=== PATIENT | female | born 1990 ===

== ENCOUNTER 2025-02-07 12:00 | Outpatient (AMB) | payer OTHER, SELFPAY ==
--- NOTE | 2025-02-07 12:09 | MHC.OFFWIV ---
Intake Vital Signs 02/07/25 12:11 Height 5 ft 3 in BP 90/58 L Blood Pressure Location Lt brachial Position Sitting Pulse 94 Pulse Source Pulse Oximeter Temp 97.9 F Pulse Oximetry (%) 99 Oxygen Delivery Method Room Air Intake Visit Reasons: COMPOUND MIXER-sore throat, body ache, headaches Intake Note: [place] Islander speaking pt presents with sore throat, no pain with swallowing, body aches for 2 days Center Machine Set Up Operator Required: Yes Allergies Penicillins Allergy (Mild, Verified 02/07/25 12:17) Rash HPI HPI Comments History of Present Illness Details Patient is a 34yo F who presents with cold symptoms [place] Islander speaking and video occupational ther used for entire visit She said missed work and needs a note for yesterday and today Symptoms are; + body aches, headache and ST She said subjective fever/chills at 5am today She has tried tylenol without complete relief Pain level in throat 0/10 but irritated when swallowing and body aches is an 8/10 + fatigue + nausea without vomiting, diarrhea, constipation decreased appetite No cough No eat pain Review of Systems Const Reports fatigue, Denies fever(s) and Reports poor appetite Eyes Denies change in vision ENT Denies otalgia, Denies nasal congestion and Reports sore throat Card Denies chest pain and Denies syncope Resp Denies cough GI Denies abdominal pain and Denies vomiting Musc Reports myalgias Neuro Denies syncope Endo Reports fatigue Physical Exam Vital Signs: Last Vital Signs Temp 97.9 F 02/07/25 12:11 Pulse 94 02/07/25 12:11 BP 90/58 L 02/07/25 12:11 Pulse Ox 99 02/07/25 12:11 Oxygen Delivery Method Room Air 02/07/25 12:11 General: Non-toxic, NAD. Speaking full sentences. Skin: Warm dry throughout Eye: EOMI HENT: Airway patent. Uvula midline. Minimal pharyngeal erythema without exudates or edema. 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 Bilateral canals clear. TM non-erythematous, non-bulging. No TM perforation or hemotympanum noted. Respiratory: CTA bilaterally. No wheezes, rales or rhonchi Cardiac: RRR. No murmur MSK: Full ROM extremities. Neurology: Alert. No aphasia or facial droop. Gait without abnormality Psych: Good mood and affect Assessment & Plan Assessment & Plan (1) Viral illness: Code(s): B34.9 - Viral infection, unspecified Plan: Patient seen and evaluated. STrep negative covid/flu/rsv ordered and obtained Tylenol/Motrin fluids/rest PCP follow up Work note given Patient gave verbal understanding and had no additional questions or concerns at time of discharge All questions answered Orders: Orders SARS-CoV2/FLU/RSV Today B34.9 - Viral infection, unspecified Coding Level of Care Code New Pt Level 3 (35423) Diagnoses Viral illness B34.9
[2025-02-07 12:11] VITALS: BP 90/58; PULSE 94; TEMP 36.6; O2SAT 99
--- OUTSIDE RECORDS SUMMARY | 2025-02-07 13:04 | XMS_ITS | Data Portability ---
Author Organization [place] - [facility], Allergy Address [address] [address] Care Team Providers Care Mortgage Consultant Name Role Phone PHILLIP GOMEZ Primary Care Provider Assessment Encounter Date Assessment Date Assessment LastModified by Organization Details LastModified Time 04/12/2024 04/12/2024 Patient presents with bilateral cerumen impactions requiring operative microscope for removal. We discussed the need to avoid Q-tips and use 3 drops distilled vinegar twice weekly. She still notes some right-sided tinnitus. Will arrange for audiometric testing and follow-up colton Not available 04/12/2024 10:43:39 04/27/2024 04/27/2024 Patient presents for evaluation of ears and hearing. Otologic exam unremarkable. Audiometric testing demonstrates bilateral neurosensory hearing loss in the high frequencies. There is 10 to 15 dB of asymmetry at 4000, 6000, and 8000 Hz. We reviewed the differential to include acoustic neuroma versus other retrocochlear pathology. Discussed she does not meet criteria for MRI but would recommend 6 month recheck with audiogram. She was cautioned to call the office sooner with any perceived change. She is agreeable to the plan. Not available 04/27/2024 12:04:03 10/27/2024 10/27/2024 Patient with unilateral tinnitus and unilateral hearing loss, both on the right. Hearing remains stable as compared to April 2024. We discussed the utility of MRI of the internal auditory canal. Patient would like to pursue this and it has been ordered. She will be called with results. She will follow-up for annual testing. She understands the importance of calling the office in the interim with any perceived changes that arise. Not available 10/27/2024 12:59:14 Plan of Treatment Reminders Order Date Submit Date Provider Last Modified By Organization Details Last Modified Time Details Appointments None recorded. Lab None recorded. Referral None recorded. Procedures None recorded. Surgeries None recorded. Imaging MRI, brain + internal auditory canal, w/wo contrast 2024 025 [facility] [address] [place], [address], 14:14:05 Medication Orders None recorded. Patient TargetsNo targets recorded. Patient InstructionsNo instructions recorded. Reason for Referral None Reported. Results Created Date Observation Date Name Description Value Unit Range Abnormal Flag Note LastModifiedBy Organization Detail LastModifiedTime 05/01/20 24 audio gram No observ ation record ed. [email or web address] Not Available 2023 09:08:02 10/31/19 25 audio gram No observ ation record ed. BARCODE Not Available 2024 10:19:16 12/01/19 25 11/28/2024 MRI, brain + inter nal audit ory canal , w/wo contr ast No observ ation record ed. [email or web address] [facility] ([facility]) [address] [place], [address], 12/14/2024 09:44:21 Result Notes None recorded. Problems Name Problem SNOMED Code Status Onset Date Resolution Date Notes Provider Name and Address Organization Details Recorded Time Impacted cerumen of bilateral ears 0472672929854 108 Active 2023 ROYA DIAL MD [address] [address], [facility] [place], [address], [facility] - [facility] [place] 4 10:43:06 Tinnitus of right ear 7924431150289 Active 2023 ROYA DIAL MD [address] [address], [facility] [place], [address], [facility] - [facility] [place] 4 10:43:13 Sensorineur al hearing loss 47893598 Active 2023 Tracy layton [place] - [facility] [place] 4 10:58:07 Bilateral tinnitus 3387878685567 Active 2023 LEENA MURRAY PA-C [address] [facility],[address] [address], [place], [address], [facility] - [facility] [place] 11:19:27 Problem Notes None recorded. Procedures Surgical History Date Name Laterality Status Provider Name and Address Organization Details Recorded Time 10/28/19 25 Air & Speech Audio with Tymps - 26080, 04989 & 18529 completed ALESSIA POTTS [address] [facility],[address] [address], [place], [address], [facility] - [facility] [place] 10/27/2024 11:23:43 04/27/20 24 Tympanometry - 74566 completed Tracy Luong [place] - [facility] [place] 04/27/2024 10:58:00 04/27/20 24 Air & Bone Audio - 35830 completed Tracy Luong [place] - [facility] [place] 04/27/2024 10:57:55 04/12/20 24 Cerumen removal with microscope completed ROYA CHANDLER MD [address] [facility],[address] [address], [place], [address], [facility] 04/12/2024 10:44:18 Imaging Results None recorded. Procedure Notes None recorded. Medical Equipment None Reported. Allergies Allergen ID Allergen Name Allergen Category Reaction Reaction Severity Criticality Documentation Date Start Date Code Code System Note Provider Name and Address Organization Details Recorded Time 161974 Product containin g penicilli n (product) medicatio n Not available Not available Not available 04/12/2024 83321 8001 SNOMED Caleb Nixon KATIUSKA layton - [facility] [place] 4 10:06:00 957780 pineapple extract food Not available Not available Not available 04/12/2024 38954 74 RxNorm ROYA DIAL MD [address] [facility] [address], [place], [address], [facility] - [facility] [place] 10:42:12 Medications Name Sig Start Date Stop Date Status Note LastModified by Organization Details LastModified Time cyclobenzapr ine 10 mg tablet active Not Available Not Available Not Available fluconazole 150 mg tablet TAKE ONE TABLET BY MOUTH ONCE active Not Available Not Available N ot Available IBU 600 mg tablet TAKE ONE TABLET BY MOUTH EVERY 6 HOURS FOR MODERATE TO SEVERE PAIN SCALE 4-6. MAX OF 2400MG/DAY active Not Available Not Available N ot Available docusate sodium 100 mg capsule TAKE ONE CAPSULE BY MOUTH TWICE A DAY active Not Available Not Available No t Available diclofenac sodium 50 mg tablet,delay ed release active Not Available Not Available N ot Available norethindron e acetate 5 mg tablet TAKE ONE TABLET BY MOUTH EVERY DAY active Not Available Not Available No t Available oxycodone 5 mg tablet TAKE ONE TABLET BY MOUTH EVERY 4 HOURS NEEDED FOR SEVERE PAIN SCALE 7-10 active Not Available Not Available N ot Available Rozerem 8 mg tablet TAKE ONE TABLET BY MOUTH EVERY DAY AT BEDTIME active Not Available Not Available No t Available chlorhexidin e gluconate 0.12 % mouthwash USE 1 CAPFULL 15 ML) AFTER MEALS TWO TIMES A DAY ; DO NOT RINSE WITH WATER IMMEDIATELY AFTER USE active Not Available Not Available No t Available Vitals Date Recorded Body height Body mass index (BMI) Body weight Provider Name and Address Organization Details Last Updated DateTime 04/12/2024 157.48 cm 17.2 kg/m2 11510.68 g Caleb Nixon [facility] 04/12/2024 10:09:31 Date Recorded Body height Body mass index (BMI) Body weight Provider Name and Address Organization Details Last Updated DateTime 04/27/2024 157.48 cm 17.2 kg/m2 49945.68 g Tiffanie Cox [facility] 04/27/2024 10:29:19 Social History None recorded. Functional Status None recorded. Mental Status None recorded. Family History Nothing Reported. Medical History No medical history recorded. Gynecological HistoryNo gynecological history recorded. Obstetrics History GPAL:G 0 P 0 0 0 0 Past Encounters Encounter ID Performer Location Encounter Start Date Encounter Closed Date Diagnosis/Indication Diagnosis SNOMED-CT Code Diagnosis ICD10 Code Diagnosis Note [id number] ROYA GARCIA MD [facility] [address] [address] 04/12/2024 09:50:22 04/12/2024 10:43:40 Impacted cerumen of bilateral ears 3397652462 435843 H61.23 Tinnitus of right ear 48 40918979 108 H93.11 [id number] LEENA MURRAY PA-C [facility] [address] [address] 04/27/2024 10:22:30 04/27/2024 11:25:35 Sensorineural hearing loss 41595712 H90.5 Audiologic al evaluation results: Right ear: Normal sloping to a moderate sensorineu ral hearing loss with no measurable word recognitio n. Left ear: Normal sloping to a mild sensorineu ral hearing loss with no measurable word recognitio n.SRT and WRS could not be measured due to language barriers.A symmetric SNHL of 10dB or greater from 4-8kHz worst in the right. Tympanomet ry: Right Ear:Type A Left Ear:Type A Bilateral tinnitus 04827 28336 102 H93.13 [id number] LEENA MURRAY PA-C [facility] [address] [address] 10/27/2024 10:57:15 10/27/2024 11:52:34 Sensorineural hearing loss 45856325 H90.5 Audiologic al evaluation results: Right ear:Normal through 2 kHz sloping to moderately severe sensorineu ral hearing loss with excellent word recognitio n.Left ear:Normal through 4 kHz sloping to a mild sensorineu ral hearing loss with excellent word recognitio n. Tympanomet ry:Right Ear:Type ALeft Ear:Type A Tinnitus of right ear 48 08840810 108 H93.11 Health Concerns Section Related Observation LastModified by Organization Detai ls LastModified Time None Recorded Concern Status LastModified by Organization Details LastModified Time None Recorded Advance Directives Directive None Recorded Payers Insurance Date Sequence Insurance Name Policy Number Policy Aquino Covered Member ID Aquino Member ID Guarantor Name 10/27/2024 1 [facility] (MEDICAID REPLACEMENT - HMO) DIONNE Barnard [id number] Steph Barnard Notes Date Note Type Note Provider Name and Address Organization Details Recorded Time 04/12/2024 text/html Patient seen for bilateral ear blockage. PCP noted small ear canals. He notes right-sided tinnitus. Otherwise no chest pain shortness of breath bowel or bladder problems ROYA CHANDLER MD [address] [facility] [place], [place], [address], [facility] 04/12/2024 10:44:46 04/27/2024 text/html 33 year old gomez holman presents for evaluation of the ears and hearing. Previously found to have cerumen impaction which was debrided, and instructed to use vinegar. Patient reports the ears feel well. There is no otalgia and no otorrhea. Regarding her hearing, patient feels that her hearing is good. She has noticed that the right ear hears a whistling sound at times. She has a grandmother who had hearing loss rather early in life. TERESA CISNEROS MD [address] [facility],[address], [address], [facility] 04/27/2024 16:33:38 10/27/2024 text/html 33-year-old gomez holman presents for 6-month follow-up on asymmetric hearing loss. Reports the hearing in the right ear remains depressed as compared to the left. She is not sure when that started but that ear has given me trouble since I was little. She had a lot of ear infections as a child. Has never had a surgery on either ear. Still hearing the whistling sound in the right ear. It is intermittent. Has only heard it once in the past month. There is no otalgia since an episode in June and no otorrhea. LANETTE RUBI MD [address] [facility] [place], [place], [address], [facility] 10/27/2024 17:25:09 OBGyn Episode No OBEpisode recorded.
--- OUTSIDE RECORDS SUMMARY | 2025-02-07 13:04 | XMS_ITS | Clinical Summary ---
Author Organization [facility] Address [address] [place] [address] Care Team Providers Care Liquefied Natural Gas Plant Operator Name Role Phone Nahomy Waters Primary Care Provider [phone] Allergies Active Allergy Reactions Criticality Noted Date Comments Penicillins Hives,Itching High 04/03/2021 Medications No known medications Active Problems Problem Noted Date Diagnosed Date Anemia 08/12/2021 Anxiety 08/12/2021 Social History Tobacco Use Types Packs/Day Years Used Date Smoking Tobacco: Never Smokeless Tobacco: Never Sex and Gender Information Value Date Recorded Sex Assigned at Female 05/29/2022 9:41 AM EDT Gender Identity Female 05/05/2023 2:43 PM EDT Sexual Orientation Straight 05/05/2023 2: 43 PM EDT Job Start Date Occupation Industry Not on file Not on file Not on file Last Filed Vital Signs Vital Sign Reading Time Taken Comments Blood Pressure 94/60 03/28/2024 10:31 AM EDT Pulse 78 03/28/2024 10:31 AM EDT Temperature 36.6 C (97.8 F) 03/28/2024 10:31 AM EDT Respiratory Rate 18 05/24/2023 9:58 AM EDT Oxygen Saturation 100% 03/28/2024 10:31 AM EDT Inhaled Oxygen Concentration - - Weight 40.6 kg (89 lb 6.4 oz) 03/28/2024 10:31 A M EDT Height 157.5 cm (5' 2 ) 03/28/2024 10:31 AM EDT Body Mass Index 16.35 03/28/2024 10:31 AM EDT Plan of Treatment Health Maintenance Due Date Last Done Comments Hepatitis B Vaccines (1 of 3 - 3-dose series) 1991 Hepatitis C Screening 1991 COVID-19 Vaccine (#1) 06/17/1992 Depression Screening 2003 BMI Counseling 12/15/2009 Preventative Health Evaluation 12/15/2009 DTap / Tdap / Td (1 - Tdap) 12/15/2010 Cervical Cancer Screening (P ap Smear) 12/15/2012 Influenza Vaccine (#1) 2025 Pneumococcal Vaccine Aged Out No long er eligible based on patient's age to complete this topic RSV Ped < 20 months Aged Out No longe r eligible based on patient's age to complete this topic Care Teams Liquefied Natural Gas Plant Operator Relationship Specialty Start Date End Date Nahomy Waters DO [address] [place] [id number] PCP - General Family Medicine 04/29/23
--- OUTSIDE RECORDS SUMMARY | 2025-02-07 13:05 | XMS_ITS | Clinical Summary ---
Author Organization [facility] [employer] Address [address] [place] [address] Phone Care Team Providers Care Bar Tacker Name Role Phone Judi Cabrales MD Primary Care Provider [phone] Allergies Active Allergy Reactions Criticality Noted Date Comments Penicillins Hives,Itching High 04/03/2021 Pineapple 05/31/2023 Medications ramelteon (ROZEREM) 8 mg tablet Take 1 Tablet by mouth at bedtime. 03/02/2024 Active Active Problems Problem Noted Date Diagnosed Date Other chest pain 06/14/2024 Assessment & Plan (06/14/2024 10:42 AM EST): The patient had 2 episodes of chest discomfort in April 2024. Each episode lasted for several hours and occurred while at rest. She denies any chest discomfort that was or worsened by exertion. The description of the symptoms is consistent with atypical chest pain. Given her episodes of chest discomfort, we will proceed with further cardiac testing with an echocardiogram to rule out any underlying structural heart disease. Will also complete an exercise stress test to evaluate her exercise capacity and rule out any significant ischemic ECG changes with exercise. Orders: ECG 12 lead Transthoracic echocardiogram (TTE) complete with PRN contrast, bubble, strain, and 3D order panel; Future Exercise stress test; Future Low weight 06/14/2024 Assessment & Plan (06/14/2024 10:42 AM EST): The patient was noted to weigh 88 pounds during today's visit. She tells me that at 1 point in the past she used to weigh 110 pounds. She admits that she is not eating appropriately and she claims this is secondary to stress from her work. She denies any self-induced vomiting. Appropriate diet was discussed with the patient during today's visit. Would recommend for the patient to be referred for an evaluation with a sterile processing manager. The patient may also benefit from further evaluation to rule out an eating disorder. Recommendations to primary care physician: 1. Consider referring the patient for evaluation with a sterile processing manager. 2. Consider further evaluation to rule out an underlying eating disorder. Fatigue 05/05/2024 Insomnia 05/05/2024 Leukopenia 05/05/2024 Dizziness 01/26/2024 Assessment & Plan (06/14/2024 10:42 AM EST): The patient has been noticing occasional episodes of dizziness that occur early in the morning when she is getting up from her bed or that occurs when she bends over. She denies any dizziness when going from a sitting to a standing position. She denies any episodes of near syncope or syncope. Her blood pressures are chronically in the low normal range. Blood pressure today was found to be 102/60 mmHg. Will proceed with a tilt table study to rule out orthostatic hypotension and POTS as a cause of her occasional episodes of dizziness. Orders: Tilt table; Future Hypotension 01/26/2024 Assessment & Plan (06/14/2024 10:42 AM EST): The patient has been noted to have evidence of lower blood pressures during her previous visits with her primary care provider. At 1 time, her systolic blood pressure was noted to be in the 80s. She was referred to the emergency room during that visit I am emergency room, her blood pressures were noted to be in the low normal range (systolic blood pressure in the 90s). The patient tells me that her systolic blood pressure is usually in the 90s. Extensive laboratory testing has been completed by her primary care provider which has not reveal any evidence of significant hormonal abnormalities. Her renal function has been noted to be normal. The patient does tell me that she has progressively lost weight. She tells me that she has a lot of stress because of her job and has not been eating appropriately. She has been on that evaluation by the hematology/oncology service and there are no apparent concerns of any underlying malignancy as noted on the hematology notes. During the visit today, her blood pressure in the right arm (with a pediatric cuff) was noted to be 102/60 mmHg on the blood pressure in the left arm was noted to be 100/60 mmHg. She denied any active symptoms of dizziness at the time of my visit today. At this point, no indication for fludrocortisone or midodrine given the blood pressures noted today in our office. However, given the occasional episodes of dizziness early in the morning when getting out of bed and when bending over, I think that it would be reasonable to rule out the presence of orthostatic hypotension and POTS. For this reason, we will proceed with a tilt table study. Depending on the results of the tilt table study, then we will consider the patient needs to be started on any these medications. Orders: Tilt table; Future Depression 01/26/2024 Menorrhagia with regular cycle 06/23/2023 Overview (05/05/2024): Last Assessment & Plan: I counseled Steph that I feel it is reasonable to proceed with hysterectomy for management of her bleeding given she has failed to medical modalities and continues to have heavy bleeding and severe anemia that is affecting her quality of life. I recommended that she start a progestin until surgery to allow her to augmnent her Hgb before surgery. I recommended Aygestin. Discussed most common SE are breast tenderness and GARCIA, which are self limited. She was counseled that I recommend robotic surgery secondary to her history of x 2 and possible scarring. She agreed. We briefly discussed risks and expected recovery. She is aware that she will hear from surgery scheduling within the next 1-2 weeks for scheduling or she will call in to inquire. Iron deficiency anemia due to chronic blood loss 06/23/2023 Overview (05/05/2024): Last Assessment & Plan: I recommended she continue her Hematology visits until surgery to get her ready. She will share the plan with them and I will forward my note. Anemia 08/12/2021 Anxiety 08/12/2021 Resolved Problems Problem Noted Date Diagnosed Date Resolved Date Dizziness 06/14/2024 06/14/2024 Encounters Date Type Department Care Team Description 01/17/2025 Telephone [facility] [address] [place] [id number] Mack Wharton MD 12/19/2024 1:29 PM EDT - 12/19/2024 11:59 PM EDT Hospital Encounter [facility] [address] [place] [id number] Discharge Disposition: Home or Self Care from Last 3 Months Immunizations Name Administration Dates Next Due Moderna SARS-CoV-2 COVID-19, mRNA, LNP-S, preservative free 06/12/2021,05/15/2021 Social History Tobacco Use Types Packs/Day Years Used Date Smoking Tobacco: Never Smokeless Tobacco: Never Alcohol Use Standard Drinks/Week Comments Never 0 (1 standard drink = 0.6 oz pur e alcohol) Comments Unknown Sex and Gender Information Value Date Recorded Sex Assigned at Not on file Legal Sex Female 12:48 AM EST Gender Identity Not on file Sexual Orientation Not on file Obstetrics History Last Filed Vital Signs Vital Sign Reading Time Taken Comments Blood Pressure 110/74 06/26/2024 10:44 AM EST Pulse 64 06/14/2024 9:23 AM EST Temperature - - Respiratory Rate - - Oxygen Saturation 98% 06/14/2024 9:23 AM EST Inhaled Oxygen Concentration - - Weight 39.5 kg (87 lb) 06/26/2024 10:44 AM EST Height 157.5 cm (5' 2 ) 06/26/2024 10:44 AM EST Body Mass Index 15.91 06/26/2024 10:44 AM EST Plan of Treatment Upcoming Encounters Date Type Department Care Team (Late st Contact Info) Description 03/29/2025 1:30 PM EDT Ancillary Procedure [facility] [address] [place] [phone] 04/27/2025 1:30 PM EDT Office Visit Adult Medicine [facility] [address] [place] [address] Judi Cabrales MD [address] [place] [address] Health Maintenance Due Date Last Done Comments DTaP,Tdap,and Td Vaccines (1 - Tdap) 12/15/2010 Hepatitis B Vaccines (1 of 3 - 19+ 3-dose series) 12/15/2010 Social Influencers of Health Screening 07/03/2022 COVID-19 Vaccine (3 - 2023-2 5 season) 2024 06/12/2021, 05/15/2021 Depression Screening 01/25/2025 01/26/2024 Influenza Vaccine (#1) 2025 Cervical Cancer Screening: HPV 09/24/2026 09/24/2021 Cholesterol Screening (Lipid Panel) 01/30/2029 01/31/2024, 01/31/2024 HIV Screening Completed 09/24/2021 Hepatitis C Screening Completed 09/24/2021 HIB Vaccines Aged Out No longer eligi ble based on patient's age to complete this topic HPV Vaccines Aged Out No longer eligi ble based on patient's age to complete this topic Hepatitis A Vaccines Aged Out No long er eligible based on patient's age to complete this topic IPV Vaccines Aged Out No longer eligi ble based on patient's age to complete this topic MMR Vaccines Aged Out No longer eligi ble based on patient's age to complete this topic Meningococcal ACWY Vaccine Aged Out N o longer eligible based on patient's age to complete this topic Meningococcal B Vaccine Aged Out No l onger eligible based on patient's age to complete this topic Pneumococcal Vaccine: Pediatrics (0 to 5 Years) and At-Risk Patients (6 to 49 Years) Aged Out No longer eligible b ased on patient's age to complete this topic RSV Immunization Patients Under 20 months Aged Out No longer eligible b ased on patient's age to complete this topic Varicella Vaccines Aged Out No longer eligible based on patient's age to complete this topic Procedures Procedure Name Priority Date/Time Associated Diagnosis Comments TILT TABLE Routine 12/19/2024 2:04 PM EDT Dizziness Other specified hypotension LIPID PANEL Routine 01/31/2024 DEPRESSION SCREENING Routine 01/26/2024 HPV Routine 09/24/2021 HEPATITIS C SCREENING Routine 09/24/2021 HIV SCREENING Routine 09/24/2021 from Last 3 Months or Most Recently Relevant to Health Maintenance Results * Tilt table (12/19/2024 2:04 PM EDT) Anatomical Region Laterality Modality Radiographic Elizabeth ging Narrative 12/19/2024 2:38 PM EDT Patient was symptomatic at baseline and throughout the duration of the tilt table test. Her symptoms became worse after nitroglycerin. She was tachycardic with a normal blood pressure. Today symptoms are similar to a POTS presentation but she was still symptomatic in a recumbent position with a heart rate in the 80s. I have asked her to increase her fluid and salt intake. Her diet is still relatively poor and I have asked her to try to be more consistent about eating on a regular basis. She says she is still losing weight. Tilt Table The patient was brought to lab in fasting state. Patient lied supine for 5 minutes for equilibrium. Baseline ECG showed normal sinus rhythm. Baseline supine minimum BP: 98/57 mmHg Baseline supine minimum HR: 76 bpm Patient tilted to 70 degrees. Tilt maintained for 20 minutes. Minimum BP during tilt: 90/64 mmHg Maximum BP during tilt: 118/68 mmHg Minimum heart rate during tilt: 78 bpm Maximum heart rate during tilt: 87 bpm Rhythm during tilt: normal sinus rhythm There was a clear orthostatic response not noted. Patient experienced a physiologic HR increase with tilt. Nitroglycerin was given during the test. Tilt maintained under nitroglycerin for 5 minutes. Minimum BP under nitroglycerin: 109/70 Maximum BP under nitroglycerin: 128/78 Minimum HR under nitroglycerin: 91 Maximum HR under nitroglycerin: 133 Rhythm after nitroglycerin administration was sinus tachycardia. There was a clear orthostatic response not noted. Patient experienced an exaggerated HR increase with nitroglycerin. Symptoms seen after the nitroglycerin dose include: dizziness. Premonitory symptoms were reproduced. Conclusion: Negative tilt test. Mack Wharton MD [facility] OCED[facility] Final Result * Lipid panel (01/31/2024) [facility] LDL/HDL Ratio 2 0 - 4 Triglycerides 34 0 - 150 mg/dL Cholesterol 129 0 - 200 mg/dL HDL 57 >=40 mg/dL LDL Cholesterol 66 0 - 100 mg/dL Blood Venous blood specimen / Unknown Result [facility] Provider LAB BLOOD ORDERABLES Maris l Result * Depression Screening (01/26/2024) [facility] Depression Screening abstracted Result [facility] Provider HEALTH MAINTENANCE Final Result * Cervical Cancer Screening: HPV (09/24/2021) [facility] Cervical Cancer Screening: HPV no interpretation , abstracted Result [facility] Provider HEALTH MAINTENANCE Final Result * HIV Screening (09/24/2021) [facility] HIV Screening abstracted Result [facility] Provider HEALTH MAINTENANCE Final Result * Hepatitis C Screening (09/24/2021) [facility] Hepatitis C Screening abstracted Result [facility] Provider HEALTH MAINTENANCE Final Result from Last 3 Months or Most Recently Relevant to Health Maintenance Insurance [facility] Care Teams Bar Tacker Relationship Specialty Start Date End Date Judi Cabrales MD [address] [place] [address] [facility] - General 08/11/23
== END 2025-02-07 12:40 | disposition home or self-care (01) ==
PROVIDERS: Visit Provider Physician Assistant
DX: Z13.9 Encounter for screening, unspecified (principal); B34.9 Viral infection, unspecified

== ENCOUNTER 2025-02-07 12:00 | Outpatient (REF) | payer OTHER, SELFPAY ==
[2025-02-07 17:39] LABS: Resp Syncy Virus RNA Qual PCR NEGATIVE (Negative); SARS COV2 PCR INHOUSE NEGATIVE (Negative)
== END 2025-02-07 12:01 | disposition home or self-care (01) ==
LOC: HO.LNP 12:00
PROVIDERS: Visit Provider Physician Assistant
DX: B34.9 Viral infection, unspecified (principal); R51.9 Headache, unspecified; J02.9 Acute pharyngitis, unspecified; R53.83 Other fatigue; R11.0 Nausea; Z11.52 Encounter for screening for COVID-19; Z11.2 Encounter for screening for other bacterial diseases
CPT/HCPCS: 87637; 87880; 99202